=== PATIENT | male | born 1985 | race Caucasian/White ===

== ENCOUNTER 2016-10-20 03:00 | Emergency (ER) | payer SELFPAY ==
[2016-10-20] MEDS ORDERED: DEXAMETHASONE SOD PHOS INJ 10 MG/1 ML VIAL IV ONE (03:20)
[2016-10-20] MEDS ORDERED: FENTANYL CITRATE INJ/PF 100 MCG/2 ML AMPUL IV ONE (03:20)
[2016-10-20] MEDS ORDERED: CLINDAMYCIN 600 MG/D5W RTU 50 ML IV ONE (03:20)
--- NOTE | 2016-10-20 03:31 | ER Document Report ---
ED General - General Chief Complaint: Dental Injury Stated Complaint: MOUTH PAIN Notes: Patient is a 31-year-old male who presents with complaint of a possible tooth abscess. He's been having pain off and on over his left upper canine. He has a fractured tooth in this area and an open socket next to it. Patient says that tonight the pain increase and then developed swelling over his left upper face. No fevers. No vomiting. No difficulty breathing. No swelling over or below the mandible. No other complaints at this time. TRAVEL OUTSIDE OF THE [place] IN LAST 30 DAYS: No - Related Data Allergies/Adverse Reactions: No Known Allergies Allergy (Verified 10/20/16 03:04) Past Medical History - Social History Smoking Status: Current Every Day Smoker Chew tobacco use (# tins/day): No Frequency of alcohol use: None Drug Abuse: None Family History: Reviewed & Not Pertinent Patient has suicidal ideation: No Patient has homicidal ideation: No Renal/ Medical History: Denies: Hx Peritoneal Dialysis - Immunizations Hx Diphtheria, Pertussis, Tetanus Vaccination: No Review of Systems - Review of Systems Notes: My Normal Review Basic REVIEW OF SYSTEMS: CONSTITUTIONAL : Denies fever, chills, or sweats. Denies recent illness. EENT: Dental pain, left-sided facial swelling. CARDIOVASCULAR: Denies chest pain. RESPIRATORY: Denies cough, cold, or chest congestion. Denies shortness of breath, difficulty breathing, or wheezing. GASTROINTESTINAL: Denies abdominal pain. Denies nausea, vomiting, or diarrhea. Denies constipation. Last BM: MUSCULOSKELETAL: Denies neck or back pain or joint pain or swelling. SKIN: Denies rash or skin lesions. NEUROLOGICAL: Denies altered mental status or loss of consciousness. Denies headache. Denies weakness or paralysis or loss of use of either side. Denies problems with gait or speech. Denies sensory or motor loss. ALL OTHER SYSTEMS REVIEWED AND NEGATIVE. Physical Exam - Vital signs Vitals: Temp Pulse Resp BP Pulse Ox 97.8 F 76 20 148/73 H 100 10/20/16 03:08 10/20/16 03:08 10/20/16 03:08 10/20/16 03:08 10/20/16 03:08 - Notes Notes: General Appearance: Well nourished, alert, cooperative, no acute distress, moderate obvious discomfort. Vitals: reviewed, See vital signs table. Head: no swelling or tenderness to the head Eyes: PERRL, EOMI, Conjuctiva clear Mouth: Patient has a fractured left canine. He has swelling over left maxillary arch consistent with dental infection. No swelling to lower portion of the face. Patient is able to fully open and close mouth without difficulty. Throat: No tonsillar inflammation, No airway obstruction, No lymphadenopathy Neck: Supple, no neck tenderness, no swelling of her neck. Skin: warm, dry, appropriate color, no rash Neuro: speech clear, oriented x 3, normal affect, responds appropriately to questions. Course - Re-evaluation Re-evalutation: 10/20/16 04:59 Since she's been area swelling has increased. The swelling is still localized only to the upper face. Seems barely affected by the upper teeth. There is no swelling of the mandible or the neck. I do not suspect impending airway compromise. Due to the significant mass swelling of the upper face is still feel that he needs to see oral surgeon sooner rather than later. I did speak with Dr. Sherman, Oral surgeon sanitation worker [employer]osing machinery, who says that he would see the patientat 8 :15 this morning in his office. That is only approximately 3 hours from now. I explained this to the patient and the patient said he would be at the office a 15. Discharge patient home. Encourage return to ER if has difficulty breathing, difficulty swallowing, present for the concerns. Informed him the importance of following up with appointment. Patient agrees to follow up with the appointment. Dictation of this chart was performed using voice recognition software; therefore, there may be some unintended grammatical errors. - Vital Signs Vital signs: Temp Pulse Resp BP Pulse Ox 97.8 F 76 20 148/73 H 100 10/20/16 03:08 10/20/16 03:08 10/20/16 03:08 10/20/16 03:08 10/20/16 03:08 Discharge - Discharge Clinical Impression: Dental abscess Condition: Good Disposition: HOME, SELF-CARE Instructions: Oral Narcotic Medication ([facility]) Additional Instructions: Please go straight to Dr. Sherman's office this morning at 8:15am. He has taken your name and is expecting your. His office address is [address] Please return to the ER immediately if you have fevers, difficulty breathing, difficulty swallowing, or feel unwell. Please do not drive when taking the pain medicine. Prescriptions: Clindamycin HCl 300 mg PO ASDIR #56 capsule Hydrocodone/Acetaminophen [[place] 5-325 mg Tablet] 1 tab PO Q4 PRN #16 tablet PRN Reason: For Break[facility] Pain Forms: Return to Work Referrals: ALVARO SHERMAN DDS [ACTIVE STAFF] - 10/20/16
[2016-10-20] MEDS ORDERED: HYDROCODONE/ACETAMINOPHEN 5-325 MG TABLET PO ONE (04:33)
[2016-10-20] MEDS ORDERED: HYDROCODONE/ACETAMINOPHEN 5-325 MG 6 TAB/DSPK PO PRN (04:33)
[2016-10-20 05:10] VITALS: BP 144/76
== END 2016-10-20 05:13 | disposition home or self-care (01) ==
LOC: ER 03:00
DX: K04.7 Periapical abscess without sinus (principal); K08.89 Other specified disorders of teeth and supporting structures; F17.200 Nicotine dependence, unspecified, uncomplicated
CPT/HCPCS: 99282; 96375; 96365; J3010; J1100